=== PATIENT | male | born 1985 | race Caucasian/White ===

== ENCOUNTER 2018-06-25 00:40 | Emergency (ER) | payer OTHER ==
[2018-06-25 00:48] VITALS: TEMP 98.2; O2SAT 100
[2018-06-25] MEDS ORDERED: Sodium Chloride 0.9% 1,000 ML IV STA (02:51)
--- NOTE | 2018-06-25 02:51 | ED PDOC ---
HPI: Psych/Substance Abuse Time Seen by Provider: 06/25/18 01:24 Chief Complaint (Nursing): Medical Clearance Chief Complaint (Provider): Medical Clearance History Per: Patient History/Exam Limitations: no limitations Additional Complaint(s): Garett Saha is a 32 year old male with no past medical history, who presents to the emergency department for a psychiatric/medical clearance for incarceration. He states that while in correction, he was complaining of abdominal pain and vomiting x1. He further states that he has not had heroin or percocet since the day prior. Patient further denies any fever, diarrhea, previous surgeries, SI, HI, hallucinations, or hematemesis. PMD: No provider Past Medical History Reviewed: Historical Data, Nursing Documentation, Vital Signs Vital Signs: Last Vital Signs Temp 98.2 F 06/25/18 00:46 Pulse 62 06/25/18 00:46 Resp 16 06/25/18 00:46 BP 149/86 06/25/18 00:46 Pulse Ox 100 06/25/18 00:46 - Medical History PMH: No Chronic Diseases - Surgical History Surgical History: No Surg Hx - Family History Family History: States: Unknown Family Hx - Social History Drugs: Opiates - Immunization History Hx Tetanus Toxoid Vaccination: No - Home Medications Home Medications: Ambulatory Orders Medication Instructions Recorded Neomycin/Bacitracin/Polymyxinb 70.8 gm TP TID #1 tub 06/16/16 [Neosporin Antibiotic Ointment] - Allergies Allergies/Adverse Reactions: Allergies Allergy/AdvReac Type Severity Reaction Status Date / Time No Known Allergies Allergy Verified 06/16/16 15:49 Review of Systems ROS Statement: Except As Marked, All Systems Reviewed And Found Negative Constitutional: Negative for: Fever Gastrointestinal: Positive for: Vomiting, Abdominal Pain. Negative for: Diarrhea, Hematemesis Psych: Negative for: Suicidal ideation (HI, hallucination) Physical Exam - Reviewed Nursing Documentation Reviewed: Yes Vital Signs Reviewed: Yes - Physical Exam Appears: Positive for: Non-toxic, No Acute Distress Head Exam: Positive for: ATRAUMATIC, NORMOCEPHALIC Skin: Positive for: Normal Color, Warm, Dry Eye Exam: Positive for: Normal appearance, EOMI, PERRL ENT: Positive for: Normal ENT Inspection Neck: Positive for: Normal, Painless ROM, Supple Cardiovascular/Chest: Positive for: Regular Rate, Rhythm. Negative for: Murmur Respiratory: Positive for: Normal Breath Sounds. Negative for: Respiratory Distress Gastrointestinal/Abdominal: Positive for: Normal Exam, Soft. Negative for: Tenderness Back: Positive for: Normal Inspection. Negative for: L CVA Tenderness, R CVA Tenderness, Vertebral Tenderness Extremity: Positive for: Normal ROM. Negative for: Pedal Edema, Deformity Neurologic/Psych: Positive for: Alert, Oriented. Negative for: Motor/Sensory Deficits - ECG O2 Sat by Pulse Oximetry: 100 (RA) Pulse Ox Interpretation: Normal Medical Decision Making Medical Decision Making: Time: 250 Plan: --Sodium chloride 1,000 ml --Zofran 4 mg IVP --Saline lock --Catapres 0.1 mg PO Patient was evaluated by Yoana, provider spoke with Dr. Swift and was cleared for discharged. Case was discussed with Dr. Lea, who recommended giving the patient Catapres. Repeat BP was 97/46 and patient has not vomited while in the ED. Catapres witheld. IV normal bolus ordered x1. Repeat BP improved. Pt. evaluated by Yoana ROCHA who spoke with Dr. Swift and cleared pt. for incarceration. On re-evaluation, pt. reports feeling better. Tolerating PO fluids in ED. Scribe Attestation: Documented by Barry Forrest acting as a scribe for Santi Barlow Provider Scribe Attestation: All medical record entries made by the Scribe were at my direction and personally dictated by me. I have reviewed the chart and agree that the record accurately reflects my personal performance of the history, physical exam, medical decision making, and the department course for this patient. I have also personally directed, reviewed, and agree with the discharge instructions and disposition. Disposition - Clinical Impression Clinical Impression: Opioid use - Patient ED Disposition Is Patient to be Admitted: No - Disposition Disposition: Routine/Home Disposition Time: 04:46 Condition: IMPROVED Additional Instructions: Patient is medically and psychiatrically cleared for incarceration. Instructions: Drug Abuse and Drug Addiction (DC), Drug Abuse Treatment Forms: [employer] (Faroese)
[2018-06-25 04:45] VITALS: BP 101/63; PULSE 60; RESP 16
== END 2018-06-25 06:02 ==
LOC: H.ER 00:40
DX: F11.20 Opioid dependence, uncomplicated (principal); R10.9 Unspecified abdominal pain
CPT/HCPCS: 96361; 96374; 99282; J2405; J7030

== ENCOUNTER 2018-08-08 19:37 | Emergency (ER) | payer OTHER ==
[2018-08-08 19:51] VITALS: BP 113/53; PULSE 58; RESP 16; TEMP 97.3; O2SAT 98
--- NOTE | 2018-08-08 19:59 | ED PDOC ---
HPI: Psych/Substance Abuse Time Seen by Provider: 08/08/18 19:41 Chief Complaint (Nursing): Medical Clearance Chief Complaint (Provider): Medical/Psych Clearance History Per: Patient, Other ([place] [facility]) History/Exam Limitations: no limitations Involuntary Hold By: Local Law Enforcement Additional Complaint(s): 32 years old male with a history of anemia brought in by [place] [employer] for medical and psychiatric clearance for incarceration. Patient is in custody for drug possession. He admits to using heroin and percocet last night. Patient denies any physical complains or reports of trauma. Other psychiatric symptoms: (-) hallucinations, (-) suicidal ideation, (-) homicidal ideation. Otherwise: (-) fever. PMD: None provided Past Medical History Reviewed: Historical Data, Nursing Documentation, Vital Signs Vital Signs: Last Vital Signs Temp 97.3 F L 08/08/18 19:48 Pulse 58 L 08/08/18 19:48 Resp 16 08/08/18 19:48 BP 113/53 L 08/08/18 19:48 Pulse Ox 98 08/08/18 19:48 - Medical History PMH: Anemia - Surgical History Surgical History: No Surg Hx - Family History Family History: States: Unknown Family Hx - Social History Drugs: Opiates - Home Medications Home Medications: Ambulatory Orders Medication Instructions Recorded Neomycin/Bacitracin/Polymyxinb 70.8 gm TP TID #1 tub 06/16/16 [Neosporin Antibiotic Ointment] - Allergies Allergies/Adverse Reactions: Allergies Allergy/AdvReac Type Severity Reaction Status Date / Time No Known Allergies Allergy Verified 08/08/18 19:41 Review of Systems ROS Statement: Except As Marked, All Systems Reviewed And Found Negative Constitutional: Positive for: Other (clearance for incarceration) Physical Exam - Reviewed Nursing Documentation Reviewed: Yes Vital Signs Reviewed: Yes - Physical Exam Comments: GENERAL APPEARANCE: Patient is awake, alert, oriented x 3, in no acute distress. Resting comfortably. NECK: Supple, FROM ENT: Mucus membranes moist. Airway patent, (-) stridor. EYES: (-) conjunctival injection (+) pupils equal and reactive. HEART AND CARDIOVASCULAR: (-) irregularity CHEST AND RESPIRATORY: (-) rales, (-) rhonchi, (-) wheezes; breath sounds equal. Respirations even and nonlabored. ABDOMEN: Soft, (-) distention, (-) tenderness, (-) guarding. NEURO: Mental status as above. Gait: steady. Speech: clear. (-) facial asymmetry - ECG O2 Sat by Pulse Oximetry: 98 (RA) Pulse Ox Interpretation: Normal Medical Decision Making Medical Decision Making: Time: 1999 Initial impression: medical and psychiatric clearance for incarceration Initial plan: --Crisis evaluation --Re-evaluation 2114 Per crisis evaluation, patient to be discharged with the diagnosis of opiate use disorder per Dr Levine. On re-evaluation, patient offers no complaints. On exam, patient remains AAOx3, in no acute distress. Vitals stable. Lab, Diagnostic results d/w the patient in great detail. Diagnosis of medical and psychiatric clearance for incarceration, opiate use disorder d/w the patient. Based on history, exam and diagnostic results, plan will be discharge into PD custody. Return to the emergency room at any time for any new or worsening symptoms. Patient states he fully agrees with and understands discharge instructions. States that he agrees with the plan and disposition. Verbalized and repeated discharge instructions and plan. I have given the patient opportunity to ask any additional questions. Scribe Attestation: Documented by Carine Ly acting as a scribe for Yolis Titus PA-C. Provider Scribe Attestation: All medical record entries made by the Scribe were at my direction and personally dictated by me. I have reviewed the chart and agree that the record accurately reflects my personal performance of the history, physical exam, medical decision making, and the department course for this patient. I have also personally directed, reviewed, and agree with the discharge instructions and disposition. Disposition - Clinical Impression Clinical Impression: Opioid use disorder, Medical clearance for incarceration - Patient ED Disposition Is Patient to be Admitted: No Counseled Patient/Family Regarding: Studies Performed, Diagnosis - Disposition Referrals: [facility] [Outside] Disposition: Discharged/Transfer to Law Enforcement Disposition Time: 21:15 Condition: STABLE Additional Instructions: PATIENT IS MEDICALLY AND PSYCHIATRICALLY CLEARED FOR INCARCERATION. Instructions: Drug Abuse and Drug Addiction (DC), Prescription Drug Abuse (DC), Drug Abuse Treatment Forms: [employer] (Dominican) Print Language: SLOVAK - POA Present On Arrival: None
== END 2018-08-08 21:42 ==
LOC: H.ER 19:37
DX: F11.10 Opioid abuse, uncomplicated (principal); Z00.00 Encounter for general adult medical examination without abnormal findings

== ENCOUNTER 2018-08-18 08:08 | Emergency (ER) | payer OTHER ==
[2018-08-18 08:12] VITALS: BMI 22.4
[2018-08-18 08:14] VITALS: O2SAT 99
[2018-08-18] MEDS ORDERED: Fluorescein 1 mg Ophthalmic Strip ONE ×3 (08:40→09:13)
[2018-08-18] MEDS ORDERED: Fluorescein 1 mg Ophthalmic Strip OU STA (08:54)
--- NOTE | 2018-08-18 09:03 | ED PDOC ---
HPI: Eye Injury/Pain Time Seen by Provider: 08/18/18 08:18 Chief Complaint (Nursing): Eye Problem Chief Complaint (Provider): left eye pain History Per: Patient History/Exam Limitations: no limitations Onset/Duration Of Symptoms: Days (last night) Current Symptoms Are (Timing): Still Present Quality: Burning Wears Contact Lens?: Yes Associated Symptoms: Pain Additional Complaint(s): Garett Saha is a 32 year old male, with no significant past medical history, who presents to the emergency department complaining of a left eye burning pain onset last night. Patient reports wearing contacts for several days and states last night he developed a burning sensation to the left eye. He took his left contact off but still had the burning sensation. Patient washed his eye with water with no benefit. He went to bed but when he woke up this morning he couldn't open his eye due to pain. On ED patient further states he has begun to develop similar pain in the right eye as well. Tetanus is up to date. He denies any fever, chills, eye discharge or other medical complaints. PMD: None provided. Past Medical History Reviewed: Historical Data, Nursing Documentation, Vital Signs Vital Signs: Last Vital Signs Temp 97.9 F 08/18/18 08:13 Pulse 78 08/18/18 08:13 Resp 18 08/18/18 08:13 BP 112/79 08/18/18 08:13 Pulse Ox 99 08/18/18 08:13 - Medical History PMH: Anemia Denies: Diabetes, Hepatitis, HIV, HTN, Chronic Kidney Disease, Seizures, Sexually Transmitted Disease - Surgical History Surgical History: No Surg Hx - Family History Family History: States: Unknown Family Hx - Social History Current smoker - smoking cessation education provided: No Alcohol: None Drugs: Cannabis, Cocaine, Opiates, Prescription medications - Immunization History Hx Tetanus Toxoid Vaccination: Yes - Home Medications Home Medications: Ambulatory Orders Medication Instructions Recorded Neomycin/Bacitracin/Polymyxinb 70.8 gm TP TID #1 tub 06/16/16 [Neosporin Antibiotic Ointment] Moxifloxacin HCl [Moxifloxacin] 2 drop OS DAILY #1 bottle 08/18/18 Naproxen [Naprosyn] 500 mg PO BID PRN #15 tablet 08/18/18 - Allergies Allergies/Adverse Reactions: Allergies Allergy/AdvReac Type Severity Reaction Status Date / Time No Known Allergies Allergy Verified 08/08/18 19:41 Review of Systems ROS Statement: Except As Marked, All Systems Reviewed And Found Negative Constitutional: Negative for: Fever, Chills Eyes: Positive for: Pain (bilateral ), Redness Physical Exam - Reviewed Nursing Documentation Reviewed: Yes Vital Signs Reviewed: Yes - Physical Exam Appears: Positive for: No Acute Distress Head Exam: Positive for: ATRAUMATIC, NORMAL INSPECTION, NORMOCEPHALIC Skin: Positive for: Normal Color, Warm, Dry Eye Exam: Positive for: EOMI, PERRL, Conjunctival injection, Other (OS questionable corneal ulceration at 6 o'clock. OD normal, no fluorescein uptake) Neck: Positive for: Normal, Painless ROM Extremity: Positive for: Normal ROM (upper and lower extremities). Negative for: Tenderness, Deformity, Swelling Neurological/Psych: Positive for: Awake, Alert, Normal Tone, Oriented - ECG O2 Sat by Pulse Oximetry: 99 (RA) Pulse Ox Interpretation: Normal Medical Decision Making Medical Decision Making: Time: 08:18 Initial Impression: Corneal ulcer Initial Plan: --Fluorescein 1 mg OU --Reevaluation Scribe Attestation: Documented by Mikael Rosa, acting as a scribe Pedro De Leon MD Provider Scribe Attestation: All medical record entries made by the Scribe were at my direction and personally dictated by me. I have reviewed the chart and agree that the record accurately reflects my personal performance of the history, physical exam, me dical decision making, and the department course for this patient. I have also personally directed, reviewed, and agree with the discharge instructions and disposition. Disposition - Clinical Impression Clinical Impression: Corneal ulcer - Disposition Referrals: Eben Muñiz MD [Staff Provider] - Disposition: Routine/Home Disposition Time: 08:53 Condition: STABLE Additional Instructions: FOLLOW-UP WITH URGENT CARE PHYSICIAN WITHIN 2 DAYS WITHOUT FAIL! Prescriptions: Moxifloxacin HCl [Moxifloxacin] 2 drop OS DAILY #1 bottle Naproxen [Naprosyn] 500 mg PO BID PRN #15 tablet PRN Reason: Pain, Moderate (4-7) Instructions: Corneal Ulcer Forms: [facility] ([place])
[2018-08-18 09:43] VITALS: BP 116/80; PULSE 80; RESP 16; TEMP 98
== END 2018-08-18 09:30 | disposition home or self-care (01) ==
LOC: H.ER 08:08
DX: H16.002 Unspecified corneal ulcer, left eye (principal)